=== PATIENT | male | born 1980 | race Caucasian/White ===

== ENCOUNTER 2021-03-12 14:05 | Emergency (ER) | payer OTHER, SELFPAY ==
--- NOTE | ~2021-03-12 | XR_ITS ---
EXAMINATION: XR RIBS, RIGHT CLINICAL INFORMATION: Injury COMPARISON: None TECHNIQUE: AP view of the chest and 3 views of the right ribs were obtained. FINDINGS: Lungs are clear. No consolidation, pneumothorax, or pleural effusion. The cardiomediastinal silhouette and pulmonary vasculature are normal. Osseous structures are unremarkable. Ribs are intact. No fractures are identified. XR/XR ribs RT min 3V w CXR1V IMPRESSION: Unremarkable examination.
[2021-03-12 14:20] VITALS: BP 116/67; PULSE 102; RESP 16; TEMP 36.7; O2SAT 98; BMI 31.1
--- NOTE | 2021-03-12 14:56 | ED.FALL ---
HPI - Fall General Chief Complaint: Fall Stated Complaint: rib pain - fall Time Seen by Provider: 03/12/21 14:56 History of Present Illness HPI Narrative: Patient complains of right mid rib pain after a fall 7 days ago where he hit his right mid ribs, no shortness of breath no headache no neck pain no back pain, no numbness weakness or tingling no fainting or feeling faint Related Data Previous Rx's Medication Instructions Recorded acetaminophen 500 mg tablet 1,000 mg PO QID PRN #30 tab 03/12/21 ibuprofen 600 mg tablet 600 mg PO Q6H PRN #20 tab 03/12/21 oxycodone 5 mg tablet 5 mg PO Q6H PRN #20 tab 03/12/21 Allergies Allergy/AdvReac Type Severity Reaction Status Date / Time banana [BANANA] Allergy Intermediate HIVES Unverified 04/08/20 15:11 amoxicillin [AMOXICILLIN] Allergy Unknown UNKNOWN Unverified 04/08/20 15:11 penicillin V Allergy Unknown Unverified 02/19/20 00:00 Penicillins [PENICILLINS] Allergy Unknown UNKNOWN Unverified 04/08/20 15:11 Sulfa (Sulfonamide Allergy Unknown Unverified 02/19/20 00:00 Antibiotics) sulfamethoxazole Allergy Unknown UNKNOWN Unverified 04/08/20 15:11 [From BACTRIM] trimethoprim [From BACTRIM] Allergy Unknown UNKNOWN Unverified 04/08/20 15:11 Review of Systems Review of Systems: Positive for right rib pain Negatives are no dizziness no weakness no fainting no feeling faint no headache no loss of consciousness no neck pain no numbness weakness or tingling no shortness of breath no palpitations no abdominal pain no nausea vomiting no extremity injuries PMFSH Past Medical History Source: nursing notes reviewed Medical History (Updated 03/13/21 @ 00:01 by Blaire Thomas) Asthma Social History Social History Advance Directives: No Advance Directives Information Provided: No Physical Exam Vital Signs: Vital Signs: Last Vital Signs Temp 98.1 F 03/12/21 14:20 Pulse 102 H 03/12/21 14:20 Resp 16 03/12/21 14:20 BP 116/67 03/12/21 14:20 Pulse Ox 98 03/12/21 14:20 Body Mass Index 31.1 General appearance no acute distress Head is normocephalic atraumatic Neck supple nontender Respiratory no acute distress Chest wall exam there is tenderness to right mid lateral ribs, the skin is normal Chest is clear to auscultation bilaterally with symmetrical equal breath sounds Heart no murmur Abdomen soft nontender Extremities full range of motion x4 Skin no lacerations Course Course Course Narrative: Chest x-ray was normal, but as pain has persisted for a week it is possible the patient has an occult rib fracture not seen on x-ray so he is advised of such but has no distress now is breathing comfortably and is treated with analgesics and discharged Discharge Plan Discharge Clinical Impression: Fracture of rib Patient Disposition: Home, Self-Care Additional Instructions: No obvious broken bone was seen on the x-ray but x-ray Mrs. many small rib fractures As pain has been going on for over week it is likely that you have a cracked rib Return any time any worse condition or concerns Follow with primary doctor as needed Prescriptions: New oxycodone 5 mg tablet 5 mg PO Q6H PRN (Reason: pain) Qty: 20 RF: 0 ibuprofen 600 mg tablet 600 mg PO Q6H PRN (Reason: pain) Qty: 20 RF: 0 acetaminophen 500 mg tablet 1,000 mg PO QID PRN (Reason: pain) Qty: 30 RF: 0 Interventions: ED Discharge Assessment Last Done: 03/12/21 16:27 Discharge Date/Time: 03/12/21 16:28
== END 2021-03-12 16:28 | disposition home or self-care (01) ==
PROVIDERS: Emergency Provider Internal Medicine
DX: S22.31XA Fracture of one rib, right side, initial encounter for closed fracture (principal); W19.XXXA Unspecified fall, initial encounter; Y93.9 Activity, unspecified; Y92.9 Unspecified place or not applicable; Y99.9 Unspecified external cause status
CPT/HCPCS: 71101; 99283

== ENCOUNTER 2025-02-12 20:57 | Emergency (ER) | payer SELFPAY ==
--- NOTE | ~2025-02-12 | XR_ITS ---
CLINICAL HISTORY: cough 1 view chest x-ray Comparison: None provided Findings: Bilateral pulmonary opacities are nonspecific and may reflect pulmonary edema or pneumonitis given interstitial predominance. No lobar consolidation at this time. Cardiac silhouette is at the upper limits of normal for AP technique. Low lung volumes without pneumothorax or pleural effusion in this portable image. Imaged osseous structures are unremarkable. IMPRESSION: Mild pulmonary opacities nonspecific and may reflect mild edema or pneumonitis. This document has been electronically signed by: Clarence Silva MD on 02/13/2025 02:46:51
[2025-02-12 20:59] VITALS: PULSE 100; O2SAT 93
[2025-02-12 21:05] VITALS: BP 108/60; PULSE 85; RESP 18; TEMP 36.3; O2SAT 89; BMI 31.7
[2025-02-12 21:58] VITALS: BP 89/54; PULSE 75; RESP 14; O2SAT 95
--- NOTE | 2025-02-12 21:58 | PC.NURSE ---
20g IV placed L forearm. labs drawn. 95% on 2L. pt resting comfortably, breathing even and unlabored.
[2025-02-12 22:02] LABS: MANUAL DIFF FLAG NO
[2025-02-12 22:03] LABS: Hematocrit 43.3 % (42.0-52.0); Hemoglobin 14.6 g/dl (14.0-18.0); Imm Gran Abs Auto 0.02 X10*3/uL (0.00-0.03); Imm Gran Pct Auto 0.3 % (0.0-0.4); Lymphocytes Absolute Auto 2.6 X10*3/uL (1.2-4.9); Mean Corpuscular HGB Conc 33.7 g/dl (31.0-36.0); Mean Corpuscular Hemoglobin 31.1 pg (27.0-33.0); Mean Corpuscular Volume 92.3 fL (80.0-98.0); NRBC Abs Auto 0.000 X10*3/uL (0.0-0.012); NRBC Pct Auto 0.0 /100WBC (0.0-0.2); Platelet Count 291 X10*3/uL (160-400); Red Blood Count 4.69 X10*6/uL (4.60-5.80); White Blood Count 6.4 X10*3/uL (4.8-10.8)
[2025-02-12 22:16] LABS: Alanine Aminotransferase 31 U/L (0-40); Albumin Level 4.7 g/dL (3.5-5.0); Alkaline Phosphatase 76 U/L (39-117); Anion Gap 15 (12-20); Aspartate Amino Transferase 25 U/L (5-37); Blood Urea Nitrogen 7 mg/dL (9-16); Calcium 8.9 mg/dL (8.4-10.2); Carbon Dioxide 25 mmol/L (22-29); Chloride 108 mmol/L (96-108); Creatinine Clr Calc Pharmacy 147.0; Estimated Glomerular Filt Rate > 60; Potassium 3.3 mmol/L (3.3-5.1); Sodium 145 mmol/L (135-145); Total Protein 7.9 g/dL (6.5-8.0)
[2025-02-12 22:31] VITALS: BP 91/50; PULSE 72; RESP 18; TEMP 36.2; O2SAT 95
[2025-02-12 23:18] VITALS: BP 105/75; PULSE 86; RESP 18; O2SAT 93
--- NOTE | 2025-02-12 23:29 | PC.NURSE ---
pt ambulated to the bathroom with 1 assist, unsteady on feet
[2025-02-13 00:40] LABS: Appearance Urine Clear; Glucose Urine UA Negative (Negative); PH 6.5 (5.0-9.0); Specific Gravity - Urine <= 1.005 (1.005-1.025)
[2025-02-13 00:52] LABS: Cannabinoid Screen Urine POSITIVE (Not Detect)
--- NOTE | 2025-02-13 01:01 | PC.NURSE ---
pt coughing, unable to manage saliva at times. on 2L 95%
[2025-02-13 01:02] VITALS: BP 102/65; PULSE 71; RESP 14; O2SAT 95
--- NOTE | 2025-02-13 01:17 | ED.ALCOHOL ---
HPI - Alcohol General Chief Complaint: ETOH/Substance Use Stated Complaint: etoh Time Seen by Provider: 02/13/25 00:54 History of Present Illness ED Provider: Sanchez Adkins MD HPI narrative: 44-year-old male brought in by EMS apparently was intoxicated in public and/or near his home. EMS said he was somewhat aggressive with them. Apparently hypoxic on room air on arrival however when I initially interviewed and evaluated the patient he was resting on room air 95% sat. Patient himself has no complaints denies injuries though smells of alcohol on his intoxicated. Related Data Previous Rx's ?Medication ?Instructions ?Recorded acetaminophen 500 mg tablet 1,000 mg (2 x 500 mg) PO QID PRN 03/12/21 pain #30 tabs ibuprofen 600 mg tablet 600 mg PO Q6H PRN pain #20 tabs 03/12/21 oxycodone 5 mg tablet 5 mg PO Q6H PRN pain #20 tabs 03/12/21 Allergies Allergy/AdvReac Type Severity Reaction Status Date / Time banana (BANANA) Allergy Intermediate HIVES Verified 02/12/25 21:05 amoxicillin (AMOXICILLIN) Allergy Unknown UNKNOWN Verified 02/12/25 21:05 penicillin V Allergy Unknown Unknown Verified 02/12/25 21:05 Penicillins (PENICILLINS) Allergy Unknown UNKNOWN Verified 02/12/25 21:05 Sulfa (Sulfonamide Allergy Unknown Unknown Verified 02/12/25 21:05 Antibiotics) sulfamethoxazole (From Allergy Unknown UNKNOWN Verified 02/12/25 21:05 BACTRIM) trimethoprim (From BACTRIM) Allergy Unknown UNKNOWN Verified 02/12/25 21:05 [facility] Past Medical History Medical History (Updated 02/14/25 @ 00:00 by Background Daemon) Asthma Social History Social History Advance Directives: No Physical Exam ED Exam Exam: EXAM: Gen: Drowsy, easily arousable but looks drowsy and intoxicated alcohol on breath. No overt external signs of trauma. Head: Atraumatic Eyes: Anicteric, Normal conjunctiva. ENT: Moist mucosa, no pallor. ? Neck: Supple. Skin: ?No observable rash or bruising on exposed or examined skin Respiratory: Breathing comfortably, No distress.Clear to auscultation bilaterally, symmetric chest expansion, No wheeze, rales, ronchi. Cardiovascular: Regular rate and rhythm. No murmurs or rub. Well perfused periphery, warm extremities. No edema. ? Abdominal: No focal tenderness. Soft, no objective distension. No palpable masses or obvious organomegaly. ?No guarding, no rebound tenderness or other peritoneal findings. : No flank tenderness. Neuro: Alert. Gross movement of all extremities intact. ? Psych: Calm. Cooperative. MSK: No grossly visible deformity. Vital signs: See flowsheet Vital Signs: Vital Signs - 24 hr 02/13/25 02:25 02/13/25 04:09 02/13/25 06:02 Temperature 97.8 F Pulse Rate 78 81 90 Respiratory Rate 14 16 18 Blood Pressure 96/58 L 101/71 113/80 Pulse Oximetry 89 L 94 95 Oxygen Delivery Method Room Air Room Air Room Air 02/13/25 06:09 Temperature 97.8 F Pulse Rate 90 Respiratory Rate 18 Blood Pressure 113/80 Pulse Oximetry 95 Oxygen Delivery Method Room Air BMI result Body Mass Index 31.7 Medical Decision Making Medical Decision Making MDM Narrative: Medical Decision Making: [age] male public intoxication. Transient intermittent hypoxia with no labored breathing or focal lung findings. Chest x-ray clear. Probably sleep and/or IVA related. Upon reassessment in the morning the patient more sober awake alert oriented no pain or other overt signs of injury. Oxygen normal range. Preliminary Favored Differential Diagnosis: Alcohol intoxication, IVA or sleep read a related transient hypoxemia among additional considered etiologies Testing Interpreted Independently: Not Applicable Radiology or Lab testing Results Reviewed: Not Applicable Consults: Not Applicable Independent Historians/External Chart Reviews: Not Applicable Social Determinants of Health Impacting MDM/Planning: Not Applicable Lab Data 02/12/25 21:57 02/12/25 21:57 Labs: Lab Results 02/12/25 02/13/25 02/13/25 Range/Units 21:57 00:30 00:31 WBC 6.4 (4.8-10.8) X10*3/uL RBC 4.69 (4.60-5.80) X10*6/uL Hgb 14.6 (14.0-18.0) g/dl Hct 43.3 (42.0-52.0) % MCV 92.3 (80.0-98.0) fL MCH 31.1 (27.0-33.0) pg MCHC 33.7 (31.0-36.0) g/dl RDW 13.6 (11.0-16.0) % Plt Count 291 (160-400) X10*3/uL MPV 8.9 L (9.4-12.4) fL Immature Gran % (Auto) 0.3 (0.0-0.4) % Neut % (Auto) 51.1 (45-73) % Lymph % (Auto) 40.7 H (20-40) % [place] % (Auto) 5.6 (2-11) % Eos % (Auto) 1.7 (0-4) % Baso % (Auto) 0.6 (0-2) % Lymph # (Auto) 2.6 (1.2-4.9) X10*3/uL [place] # (Auto) 0.4 (0.1-1.2) X10*3/uL Eos # (Auto) 0.1 (0.0-0.4) X10*3/uL Baso # (Auto) 0.0 (0.0-0.2) X10*3/uL Abs Immat Gran (auto) 0.02 (0.00-0.03) X10*3/uL Absolute Neuts (auto) 3.3 (2.0-8.3) x10*3/uL Absolute Nucleated RBC 0.000 (0.0-0.012) X10*3/uL Nucleated RBC % (auto) 0.0 (0.0-0.2) /100WBC Sodium 145 (135-145) mmol/L Potassium 3.3 (3.3-5.1) mmol/L Chloride 108 (96-108) mmol/L Carbon Dioxide 25 (22-29) mmol/L Anion Gap 15 (12-20) BUN 7 L (9-16) mg/dL Creatinine 0.67 (0.5-1.4) mg/dL Estim Creat Clear Calc 147.0 Estimated GFR > 60 Random Glucose 109 (60-115) mg/dL Calcium 8.9 (8.4-10.2) mg/dL Total Bilirubin 0.3 (0.0-1.0) mg/dL AST 25 (5-37) U/L ALT 31 (0-40) U/L Alkaline Phosphatase 76 (39-117) U/L Total Protein 7.9 (6.5-8.0) g/dL Albumin 4.7 (3.5-5.0) g/dL Urine Color Yellow Urine Appearance Clear Urine pH 6.5 (5.0-9.0) Ur Specific [place] <= 1.005 (1.005-1.025) Urine Protein Negative (Neg-Trace) mg/dL Urine Glucose (UA) Negative (Negative) mg/dL Urine Ketones Negative (Negative) mg/dL Urine Blood Negative (Negative) Urine Nitrite Negative (Negative) Ur Leukocyte Esterase Negative (Negative) Urine RBC 0-2 (0-2) /HPF Urine WBC 0-5 (0-5) /HPF Ur Squamous Epith Cells 0-2 (0-2) /HPF Urine Bacteria None Seen (None Seen) Hyaline Casts 0-2 (0-2) /LPF Urine Opiates Screen Not Detected (Not Detect) Ur Buprenorphine Scrn Not Detected (Not Detect) ng/mL Ur Oxycodone Screen Not Detected (Not Detect) ng/mL Urine Methadone Screen Not Detected (Not Detect) ng/mL Urine Fentanyl Screen Not Detected (Not Detect) Ur Barbiturates Screen Not Detected (Not Detect) Ur Phencyclidine Scrn Not Detected (Not Detect) Ur Amphetamines Screen Not Detected (Not Detect) U Benzodiazepines Scrn Not Detected (Not Detect) Urine Cocaine Screen Not Detected (Not Detect) U Marijuana (THC) Screen POSITIVE H (Not Detect) Ethyl Alcohol 379 H* mg/dL Discharge Plan Discharge Clinical Impression: Alcoholic intoxication Patient Disposition: Home, Self-Care Instructions: Alcohol Intoxication (ED) Additional Instructions: YOU WERE INTOXICATED WITH ALCOHOL LAST NIGHT AND WERE OBSERVED AND MONITORED OVERNIGHT IN THE EMERGENCY DEPARTMENT. WE RECOMMEND AGAINST USING ALCOHOL. CALL YOUR PRIMARY DOCTOR FOR FOLLOW UP Prescriptions: No Action oxycodone 5 mg tablet 5 mg PO Q6H PRN (Reason: pain) Qty: 20 0RF Rx Instructions: Narcotic, no driving for 6 hours after taking this medication ibuprofen 600 mg tablet 600 mg PO Q6H PRN (Reason: pain) Qty: 20 0RF acetaminophen 500 mg tablet 1,000 mg PO QID PRN (Reason: pain) Qty: 30 0RF Stand Alone Forms: Work/School Release Interventions: ED Discharge Assessment Last Done: 02/13/25 06:09 Discharge Date/Time: 02/13/25 06:09 Print Language: Ivorian
[2025-02-13 02:25] VITALS: BP 96/58; PULSE 78; RESP 14; O2SAT 89
--- NOTE | 2025-02-13 03:49 | PC.NURSE ---
pt is awake, asking to call . pt given phone. more alert at this time
--- NOTE | 2025-02-13 04:08 | PC.NURSE ---
pt awake, eating and drinking, VSS. requesting d/c
[2025-02-13 04:09] VITALS: BP 101/71; PULSE 81; RESP 16; O2SAT 94
[2025-02-13 06:02] VITALS: BP 113/80; PULSE 90; RESP 18; TEMP 36.6; O2SAT 95
[2025-02-13 06:09] VITALS: BP 113/80; PULSE 90; RESP 18; TEMP 36.6; O2SAT 95
== END 2025-02-13 06:09 | disposition home or self-care (01) ==
PROVIDERS: Emergency Provider Emergency Medicine
DX: F10.129 Alcohol abuse with intoxication, unspecified (principal); Y90.8 Blood alcohol level of 240 mg/100 ml or more; R05.9 Cough, unspecified; R06.02 Shortness of breath; Z51.81 Encounter for therapeutic drug level monitoring; Z79.899 Other long term (current) drug therapy
CPT/HCPCS: 36415; 71045; 80053; 80307; 81001; 85025; 99284

== ENCOUNTER → 2025-02-13 00:18 | Outpatient (BNV) | payer OTHER, SELFPAY | PROVIDERS: Emergency Provider Emergency Medicine; Visit Provider Radiology Neuroradiology | DX: R05.9 Cough, unspecified (principal) | CPT/HCPCS: 71045 ==